=== PATIENT | male | born 1990 | race African-American/Black ===

== ENCOUNTER 2016-08-05 17:15 | Emergency (ER) | payer OTHER ==
--- NOTE | ~2016-08-05 | CR263 ---
[facility] A Service of [facility] & [facility] RADIOLOGY TEXT RESULTS PATIENT: MIRANDA JONES LOCATION: CFTX : 89 UNIT #: [id number] AGE: [address]: Naheed Coombs APRN SEX: M ORDER DR: [id number] [facility] [address] [place], [place] [address] [id number] E MR#: [id number] Acc #: [id number] NAME: MIRANDA JONES : 1990 SEX: M STUDY DATE/TIME: 08/05/2016 17:56 UNIT: [facility] ROOM: STUDY DESCRIPTION: CR Toe 2 Views Great Rt Attending Physician: Naheed Coombs A.P.R.N. Ordering Physician: Ed Richard Lee M.D. Primary Care Physician: Primary Care Physician No MEDICAL IMAGING REPORT This report is preliminary unless electronic signature is present EXAM Right first toe 3 views, 08/05/2016 HISTORY Laceration and contusion to right first toe today. Stubbed toe on bed. FINDINGS 3 views of the right first toe demonstrate no fracture. The bones are normally mineralized. No foreign body is seen. Soft tissue laceration dorsal aspect of the first toe overlying the base of the first distal phalanx. IMPRESSION No evidence of fracture or radiopaque foreign body. Dictated by... Serafin Miller M.D. THIS IS AN ELECTRONICALLY VERIFIED REPORT Serafin Miller M.D. at 08/06/2016 10:38 AM KATY/daren TD: 08/06/2016 04:13 JOB #: [id number] MEDICAL IMAGING REPORT Page 1 of 1 COPY
== END 2016-08-05 19:12 | disposition home or self-care (01) ==
LOC: CFTX 17:15 → CED 17:15 → CFTX 17:40
DX: S91.111A Laceration without foreign body of right great toe without damage to nail, initial encounter (principal); F17.210 Nicotine dependence, cigarettes, uncomplicated; W22.8XXA Striking against or struck by other objects, initial encounter
CPT/HCPCS: 12001; 73660; 99283

== ENCOUNTER 2016-08-12 18:17 | Emergency (ER) | payer SELFPAY | END 2016-08-12 19:00 | disposition home or self-care (01) | LOC: CFTX 18:17 → CED 18:17 → CFTX 18:53 | DX: S91.111D Laceration without foreign body of right great toe without damage to nail, subsequent encounter (principal); F17.200 Nicotine dependence, unspecified, uncomplicated; L30.9 Dermatitis, unspecified; W25.XXXD Contact with sharp glass, subsequent encounter; Y92.9 Unspecified place or not applicable | CPT/HCPCS: 99281 ==